=== PATIENT | female | born 1990 | race Caucasian/White ===

== ENCOUNTER 2017-09-07 20:14 | Outpatient (CLI) | payer MEDICAID ==
[2017-09-07] MEDS: DIPHENHYDRAMINE 25 MG CAP PO (20:59)
[2017-09-07 23:07] LABS: ALANINE AMINOTRANSFERASE 60 IU/L (13-69); ALKALINE PHOSPHATASE 320 IU/L (42-121); ASPARTATE AMINO TRANSFERASE 30 IU/L (15-46); BILIRUBIN,INDIRECT 0.1 mg/dl (0-1.1); BILIRUBIN,TOTAL 0.1 mg/dl (0.2-1.3)
== END 2017-09-08 01:22 | disposition home or self-care (01) ==
LOC: OBT 20:14 → L-D 20:15
DX: O26.893 Other specified pregnancy related conditions, third trimester (principal); L29.9 Pruritus, unspecified; Z3A.38 38 weeks gestation of pregnancy
CPT/HCPCS: 80076; 83789

== ENCOUNTER 2017-09-11 13:00 | Inpatient (IN) | payer MEDICAID ==
[2017-09-11] MEDS ORDERED: LACTATED RINGER'S 1,000 ML IV (13:44)
[2017-09-11] MEDS ORDERED: MISOPROSTOL 200 MCG TAB PR ×2 (14:00→20:30)
[2017-09-11] MEDS ORDERED: METHYLERGONOVINE 0.2 MG INJ IM ×2 (14:00→20:30)
[2017-09-11] MEDS ORDERED: OXYTOCIN 30 UNITS/LR 500 ML IV ×2 (14:00→20:30)
[2017-09-11] MEDS ORDERED: CARBOPROST 250 MCG INJ IM ×2 (14:00→20:30)
[2017-09-11] MEDS ORDERED: LIDOCAINE 1% (MPF) 30 ML INJ INJ (14:00)
[2017-09-11] MEDS ORDERED: AMPICILLIN 2 GM/NS (PMX) 100 ML IV (14:00)
[2017-09-11] MEDS ORDERED: BUTORPHANOL 2 MG INJ IV ×2 (14:00)
[2017-09-11 14:03] LABS: ADD MAN DIFF? NO
[2017-09-11 14:06] LABS: BASOPHILS % 0.4 % (0.0-2.0); EOSINOPHILS % 0.4 % (0.0-7.0); HEMATOCRIT 35.2 % (37.0-47.0); LYMPHOCYTES # 1.4 10^3/ul (0.8-2.9); LYMPHOCYTES % 24.5 % (15.0-51.0); MEAN CORPUSCULAR HEMOGLOBIN 29.4 pg (29.0-33.0); MEAN CORPUSCULAR HGB CONC 34.1 g/dl (32.0-37.0); MEAN CORPUSCULAR VOLUME 86.3 fl (82.0-101.0); MEAN PLATELET VOLUME 12.7 fl (7.4-10.4); MONOCYTE # 0.4 10^3/ul (0.3-0.9); MONOCYTES % 6.3 % (0.0-11.0); NEUTROPHIL # 3.8 10^3/ul (1.6-7.5); NEUTROPHILS % 67.9 % (39.0-77.0); PLATELET COUNT 141 10^3/UL (140-415); RED BLOOD COUNT 4.08 10^6/ul (4.20-5.40); RED CELL DISTRIBUTION WIDTH 13.8 % (11.5-14.5)
[2017-09-11 14:06] LABS: WHITE BLOOD COUNT 5.6 10^3/ul (4.8-10.8)
[2017-09-11] MEDS: SOD CHLORIDE 0.9% 1,000 ML IV (14:08)
[2017-09-11 14:16] LABS: INR 0.75; PROTIME 10.6 Sec (11.9-14.9); PT RATIO 0.8
[2017-09-11 14:18] LABS: GLUCOSE 112 mg/dl (70-220)
[2017-09-11 15:10] LABS: RAPID PLASMA REAGIN NONREACTIVE (NR)
[2017-09-11] MEDS: OXYTOCIN 30 UNITS/LR 500 ML IV ×4 (15:51→21:28)
[2017-09-11] MEDS: DEXTROSE 5%-LR 1,000 ML IV (16:43)
[2017-09-11] MEDS ORDERED: AMPICILLIN 1 GM/NS (PMX) 50 ML IV (18:00)
[2017-09-11] MEDS: LACTATED RINGER'S 1,000 ML IV* (20:19)
[2017-09-11] MEDS ORDERED: WITCH HAZEL/GLYCERIN PAD PR (20:30)
[2017-09-11] MEDS ORDERED: BENZOCAINE 20% 56 ML SPRAY TOP (20:30)
[2017-09-11] MEDS ORDERED: DIBUCAINE 1% 30 GM OINT PR (20:30)
[2017-09-11] MEDS ORDERED: HYDROCODONE/APAP (5/325) TAB PO ×2 (20:30)
[2017-09-11] MEDS: IBUPROFEN 600 MG TAB PO (21:53)
[2017-09-12] MEDS: LANOLIN 7 GM TUBE TOP (04:10)
[2017-09-12] MEDS: IBUPROFEN 600 MG TAB PO ×5 (04:10→23:49)
[2017-09-12 09:41] LABS: ADD MAN DIFF? NO
[2017-09-12 09:47] LABS: WHITE BLOOD COUNT 8.3 10^3/ul (4.8-10.8)
[2017-09-12 09:47] LABS: BASOPHILS % 0.2 % (0.0-2.0); EOSINOPHILS % 0.1 % (0.0-7.0); HEMATOCRIT 32.5 % (37.0-47.0); HEMOGLOBIN 10.9 g/dl (12.0-16.0); LYMPHOCYTES # 1.5 10^3/ul (0.8-2.9); LYMPHOCYTES % 17.9 % (15.0-51.0); MEAN CORPUSCULAR HEMOGLOBIN 29.3 pg (29.0-33.0); MEAN CORPUSCULAR HGB CONC 33.5 g/dl (32.0-37.0); MEAN CORPUSCULAR VOLUME 87.4 fl (82.0-101.0); MEAN PLATELET VOLUME 12.6 fl (7.4-10.4); MONOCYTE # 0.4 10^3/ul (0.3-0.9); MONOCYTES % 4.7 % (0.0-11.0); NEUTROPHIL # 6.4 10^3/ul (1.6-7.5); NEUTROPHILS % 76.7 % (39.0-77.0); PLATELET COUNT 135 10^3/UL (140-415); RED BLOOD COUNT 3.72 10^6/ul (4.20-5.40)
[2017-09-12 10:14] LABS: GLUCOSE 149 mg/dl (70-220)
[2017-09-13] MEDS: IBUPROFEN 600 MG TAB PO ×2 (05:37→12:02)
[2017-09-13] MEDS: MEASLES,MUMPS,RUBELLA VACCINE INJ SC* (09:00)
[2017-09-13] MEDS: VARICELLA VACCINE LIVE/PF 1,350 UNIT/0.5 ML ML SC* (09:00)
[2017-09-13] MEDS: DIPHTH/TET/ACEL PERTUSS (ADULT) 0.5 ML VIAL IM* (10:46)
== END 2017-09-13 15:20 | disposition home or self-care (01) | DRG 775 ==
LOC: L-D 13:00 → PP1 22:53
PROVIDERS: Obstetrics & Gynecology
PROC: 10E0XZZ Delivery of Products of Conception, External Approach (ICD-10-PCS; principal; 2017-09-11)
PROC: 3E033VJ Introduction of Other Hormone into Peripheral Vein, Percutaneous Approach (ICD-10-PCS; 2017-09-11)
DX: O24.429 Gestational diabetes mellitus in childbirth, unspecified control (principal); Z37.0 Single live birth; Z3A.37 37 weeks gestation of pregnancy
CPT/HCPCS: 76815; 76818; 82947; 82962; 85025; 85610; 85730; 86592; 86900; 86901; 90715; 90716